=== PATIENT | female | born 1975 | race Caucasian/White ===

== ENCOUNTER 2019-04-14 04:37 | Emergency (ER) | payer BC ==
[~2019-04-14] VITALS: Ht 167.6 cm; Wt 75.3 kg
[~2019-04-14 04:37] MED LIST: IBUP-1222 PO
[2019-04-14] MEDS ORDERED: KETOROLAC 30 MG/1 ML ONE (05:27)
[2019-04-14] MEDS ORDERED: SODIUM CHLORIDE FLUSH 10ML SYR IVF ONE (05:30)
[2019-04-14] MEDS ORDERED: KETOROLAC 30 MG/1 ML IVPush ONE (05:30)
[2019-04-14] MEDS ORDERED: METHOCARBAMOL 750 MG TABLET ONE (05:57)
[2019-04-14] MEDS ORDERED: METHOCARBAMOL 750 MG TABLET PO ONE (06:00)
[2019-04-14 06:08] LABS: ALBUMIN 3.4 g/dL (3.4-5.0); ANION GAP 5 mmol/L (5-15); CALCIUM 8.5 mg/dL (8.5-10.1); CHLORIDE 111 mmol/L (98-107); CREATININE 0.96 mg/dL (0.55-1.02)
[2019-04-14 06:09] LABS: BASOPHILS # (AUTO) 0.04 x10^3/uL (0-0.1); BASOPHILS % (AUTO) 1 % (0-1); EOSINOPHILS # (AUTO) 0.18 x10^3/uL (0-0.4); EOSINOPHILS % (AUTO) 3 % (1-7); LYMPHOCYTES # (AUTO) 2.44 x10^3/uL (1-3.4); LYMPHOCYTES % (AUTO) 38 % (22-44); MD NO; MEAN CORPUSCULAR HEMOGLOBIN 26.1 pg (27.0-34.8); MEAN CORPUSCULAR HGB CONC 32.9 g/dL (32.4-35.8); MEAN CORPUSCULAR VOLUME 79.3 fL (80-100); MEAN PLATELET VOLUME 8.6 fL (7.4-10.4); MONOCYTES # (AUTO) 0.51 x10^3/uL (0.2-0.8); MONOCYTES % (AUTO) 8 % (2-9); NEUTROPHILS # (AUTO) 3.25 x10^3/uL (1.8-6.8); NEUTROPHILS % (AUTO) 51 % (42-75); PLATELET COUNT 295 x10^3/uL (130-400); RED BLOOD COUNT 4.35 x10^6/uL (3.82-5.3); RED CELL DISTRIBUTION WIDTH 15.8 % (9.6-15.2)
[2019-04-14 06:44] LABS: MICROSCOPIC NOT IND
[2019-04-14 06:46] LABS: CULTURE INDICATED? NO
--- NOTE | 2019-04-14 07:57 | NUR ---
TASK RN: Discharge instructions discussed with patient including when to return to emergency department, patient verbalizes understanding. Prescriptions provided with instruction for use, patient verbalizes understanding. at bedside to drive patient home.
[2019-04-14 07:58] VITALS: BP 113/72
== END 2019-04-14 08:00 | disposition home or self-care (01) ==
LOC: ED 05:21
DX: S39.012A Strain of muscle, fascia and tendon of lower back, initial encounter (principal); X58.XXXA Exposure to other specified factors, initial encounter; Y93.89 Activity, other specified; Y92.89 Other specified places as the place of occurrence of the external cause; Y99.8 Other external cause status; Z88.5 Allergy status to narcotic agent; Z88.0 Allergy status to penicillin; Z88.1 Allergy status to other antibiotic agents; Z88.6 Allergy status to analgesic agent; Z91.040 Latex allergy status
CPT/HCPCS: 36415; 80048; 81003; 82040; 84703; 85025; 96374; 99283; J1885